=== PATIENT | female | born 1995 | race Caucasian/White ===

== ENCOUNTER 2017-02-14 11:28 | Emergency (ER) | payer SELFPAY ==
[~2017-02-14 11:28] MED LIST: NEXPLANON68 MG; NO MEDICATIONS
[2017-02-14] MEDS ORDERED: NO MEDICATIONS (11:43)
== END 2017-02-14 12:16 | disposition home or self-care (01) ==
LOC: SED 11:28
DX: J02.0 Streptococcal pharyngitis (principal); R11.10 Vomiting, unspecified; F17.200 Nicotine dependence, unspecified, uncomplicated
CPT/HCPCS: 96372; 99283; J0561